=== PATIENT | male | born 1960 | race Hispanic/Latino ===

== ENCOUNTER 2018-12-18 14:13 | Emergency (ER) | payer SELFPAY ==
[2018-12-18 14:13] VITALS: BMI 22.9
[2018-12-18 14:31] VITALS: BP 114/80; PULSE 86; RESP 18; TEMP 98; O2SAT 98
--- NOTE | 2018-12-18 14:58 | C.PDOC ---
History Of Present Illness 58 year old male presents to ED with complaint of large,non-tender mass to the left scrotum for the past 10 years. Patient states that the mass has been gradually growing since. Patient had a prior evaluation for the mass many years ago, which showed it be a benign cystic mass. He also complains of experiencing mild discomfort to the right scrotal area as well. He states that the discomfort becomes worse with coughing, walking, and heavy lifting. Patient has a history of alcohol abuse and prior DVT. Patient claims that he is drinking less now. He denies fever, weakness, numbness, or discharge. Time Seen by Provider: 12/18/18 14:31 Chief Complaint (Nursing): Groin Pain History Per: Patient History/Exam Limitations: no limitations Onset/Duration Of Symptoms: Other (10 years) Current Symptoms Are (Timing): Still Present Quality Of Discomfort: "Pain" Associated Symptoms: denies: Fever, Chills, Urinary Symptoms Past Medical History Reviewed: Historical Data, Nursing Documentation, Vital Signs Vital Signs: Last Vital Signs Temp 98.0 F 12/18/18 14:30 Pulse 86 12/18/18 14:30 Resp 18 12/18/18 14:30 BP 114/80 12/18/18 14:30 Pulse Ox 98 12/18/18 14:30 Primary Care Provider: FAMILY PROVIDER,NO - Medical History PMH: Kidney Stones, Chronic Kidney Disease Surgical History: No Surg Hx Family History: States: Unknown Family Hx - Social History Hx Alcohol Use: No Hx Substance Use: No - Immunization History Hx Tetanus Toxoid Vaccination: No Hx Influenza Vaccination: No Hx Pneumococcal Vaccination: No Review Of Systems Constitutional: Negative for: Fever, Chills, Weakness Genitourinary: Positive for: Scrotal Pain. Negative for: Dysuria, Frequency, Hematuria, Penile Discharge, Rash, Penile Pain Skin: Positive for: Other (mass to the left scrotum ) Neurological: Negative for: Weakness, Numbness Physical Exam - Physical Exam Appears: Non-toxic, No Acute Distress Skin: Normal Color, Warm, Dry Head: Atraumatic, Normacephalic Eye(s): right: Other (chronically laterally deviated) Neck: Normal ROM, Supple Chest: Symmetrical, No Deformity Cardiovascular: Rhythm Regular, No Murmur Respiratory: No Accessory Muscle Use, No Rales, No Rhonchi, No Wheezing Gastrointestinal/Abdominal: Soft, No Tenderness Male Genital: No Testicular Tenderness, No Testicular Swelling, Other (10 by 5 cm mass to the left scrotal area, nontender, firm; direct inguinal defect on the right side that is increased with coughing; normal right testicle) Extremity: Capillary Refill (<2 seconds) Extremity: Bilateral: Atraumatic, Normal Color And Temperature, Normal ROM Pulses: Left Femoral: Normal, Right Femoral: Normal Neurological/Psych: Oriented x3, Normal Speech, Normal Cognition, Normal Motor, Normal Sensation ED Course And Treatment O2 Sat by Pulse Oximetry: 98 (in RA) Pulse Ox Interpretation: Normal - CT Scan/US Testicular US Other Rad Studies (CT/US): Read By Radiologist CT/US Interpretation: IMPRESSION: Probable large left-sided loculated hydrocele. Correlate clinically including comparison with prior outside imaging if available. Follow-up as indicated. Bilateral epididymal cysts. Progress Note: Testicular US ordered for patient. Patient given Motrin PO. Medical Decision Making Medical Decision Making: Large L scrotal hydrocele x 10 yrs (approx 20x6 cm) dW Dr. Yonathan Olivo- [facility]- ok for opt f/u. Disposition Doctor Will See Patient In The: Office Counseled Patient/Family Regarding: Studies Performed, Diagnosis - Disposition Referrals: [facility] [Outside] [facility] [Outside] [facility] [Outside] Mandeep Olivo MD [Staff Provider] - Disposition: HOME/ ROUTINE Disposition Time: 16:38 Condition: GOOD Additional Instructions: large hydrocele of L scrotum Call Dr. Olivo- Urology [facility] for further eval/treatment Call his Cell #: [phone] to make an appointment Instructions: Hydrocele Forms: [facility] (Thai) - Clinical Impression Clinical Impression: Hydrocele, left - Scribe Statement The provider has reviewed the documentation as recorded by the Scribe (Ct Webb) All medical record entries made by the Scribe were at my direction and personally dictated by me. I have reviewed the chart and agree that the record accurately reflects my personal performance of the history, physical exam, medical decision making, and the department course for this patient. I have also personally directed, reviewed, and agree with the discharge instructions and disposition.
--- NOTE | 2018-12-18 16:25 | US ---
Date of service: 12/18/2018 HISTORY: L scrotal mass x 10 yrs TECHNIQUE: Realtime sonography through the scrotum with color and doppler flow. COMPARISON: None Available. FINDINGS: RIGHT TESTICLE: Measures 5.1 x 2.3 x 2.9 cm. Homogeneous echotexture. Blood flow is demonstrated. RIGHT EPIDIDYMIS: At least 3 cysts measuring up to 1 cm. LEFT TESTICLE: Measures 4.5 x 2.5 x 3.1 cm. Homogeneous echotexture. Blood flow is demonstrated. LEFT EPIDIDYMIS: 1.7 x 1.0 x 1.3 cm cyst. HYDROCELE: Partially imaged probable large loculated left-sided hydrocele. VARICOCELE: None. OTHER FINDINGS: None. IMPRESSION: Probable large left-sided loculated hydrocele. Correlate clinically including comparison with prior outside imaging if available. Follow-up as indicated. Bilateral epididymal cysts.
== END 2018-12-18 16:44 | disposition home or self-care (01) ==
LOC: C.ER 14:13
DX: N43.3 Hydrocele, unspecified (principal)